=== PATIENT | male | born 1940 | race Caucasian/White ===

== ENCOUNTER 2022-01-20 04:05 | Emergency (ER) | payer OTHER, SELFPAY ==
--- NOTE | ~2022-01-20 | CT_ITS ---
EXAMINATION: CT brain wo con DATE: 01/20/2022 05:03 INDICATION: Anticoagulated patient with posterior head injury post fall TECHNIQUE: Computed tomography (CT) of the head was performed without intravenous contrast. Sagittal and coronal reconstructions were performed. The mA was adjusted according to patient size. Iterative reconstruction technique was employed. The dose-length product was 1362.00 mGy-cm. COMPARISON: None FINDINGS: Small left parietal scalp hematoma. No fracture. No acute intracranial hemorrhage, acute infarction o r abnormal extra axial fluid collection. There is moderate scattered white matter hypoattenuation con sistent with chronic small vessel ischemic disease. Symmetric prominence of the sulci and and subarac hnoid spaces overlying the convexities consistent with mild to moderate age-appropriate diffuse cereb ral volume loss. Ventricles are normal and symmetric. No mass/mass effect. There is mucus in the depe ndent left sphenoid sinus and mild mucoperiosteal thickening the bilateral ethmoid sinuses. The orbit s and mastoid air cells are normal. Intracranial calcified cerebral atherosclerosis is noted. IMPRESSION: 1. No fracture or acute intracranial process. 2. Age-related changes including mild to moderate diffuse volume loss and moderate scattered white ma tter hypoattenuation consistent with chronic small vessel ischemic disease. Reviewed, dictated and finalized at location A. ERS COMPENSATION CONSULTANT IMPRESSION: 1. No fracture or acute intracranial process. 2. Age-related changes including mild to moderate diffuse volume loss and moder ate scattered white matter hypoattenuation consistent with chronic small vessel ischemic disease.
--- NOTE | ~2022-01-20 | XR_ITS ---
EXAMINATION: XR pelvis 1-2V INDICATION: Pelvic pain after fall TECHNIQUE: AP view the pelvis is obtained COMPARISON: None available FINDINGS: Bone alignment is normal. There is no fracture. There is mild osteoarthritis of the hips. IMPRESSION: 1. No acute osseous abnormality. Reviewed, dictated and finalized at location A. NG STAPLER
--- NOTE | ~2022-01-20 | CT_ITS ---
EXAMINATION: CT cervical spine wo con DATE: 01/20/2022 05:04 INDICATION: Fall. Struck back of head. TECHNIQUE: Computed tomography (CT) of the cervical spine was performed without intravenous contrast. Automated exposure control and iterative reconstruction technique were employed. Exam dose: 570.17 mGy-cm total exam DLP. COMPARISON: None FINDINGS: Degenerative change at the atlantodental joint. C1 and C2 are normally aligned and the odon toid process is intact. Severe degenerative disc disease at C6-7. There is prominent degenerative change at the apophyseal joints throughout the cervical spine. No fracture or dislocation or locked facet or prevertebral soft tissue swelling. IMPRESSION: Cervical spondylosis; no evidence of fracture or dislocation or locked facet Reviewed, dictated and finalized at Location [facility]. Reviewed, dictated and finalized at location B. URE ANALYSIS ENGINEER IMPRESSION: Cervical spondylosis; no evidence of fracture or dislocation or lo cked facet
--- NOTE | ~2022-01-20 | XR_ITS ---
EXAMINATION: XR chest 1V portable INDICATION: Pain after fall TECHNIQUE: Portable AP chest at 0438 hours COMPARISON: None available FINDINGS: The lung volumes are low. No pleural effusion or pneumothorax. There are minimal airspace o pacities of the lung bases. The cardiomediastinal silhouette is normal. Fullness of the right hilum l ikely reflects prior vascular structures. IMPRESSION: 1. Minimal bibasilar airspace opacities, consistent with atelectasis versus pneumonia. Reviewed, dictated and finalized at location A. HOME HEALTH IMPRESSION: 1. Minimal bibasilar airspace opacities, consistent with atelectasis versus pne umonia.
[2022-01-20 04:05] VITALS: BP 135/120; PULSE 81; RESP 16; O2SAT 98
--- NOTE | 2022-01-20 04:28 | ECG_ITS ---
Measurements Intervals [place] Rate: 78 P: 45 CO: 195 QRS: 19 QRSD: 106 T: 31 QT: 390 QTc: 447 Interpretive Statements SINUS RHYTHM WITH OCCASIONAL SUPRAVENTRICULAR PREMATURE COMPLEXES NONSPECIFIC ST & T-WAVE ABNORMALITY NO PREVIOUS ECG AVAILABLE FOR COMPARISON Electronically Signed On 01-20-2022 7:47:41 TIP INSERTER by Kobi Nolasco M.D.
--- NOTE | 2022-01-20 04:29 | ED.GENADULT ---
HPI - General Adult General Chief complaint: Fall Stated complaint: FALL History of Present Illness HPI narrative: this is an 81-year-old male lives in assisted living presented to ED with a fall. Patient says that he got out of bed And tripped over his slippers. He then fell into the wall and then to the ground. He struck his head on the wall and has a small cut to the back of his scalp. He denies loss of consciousness, numbness tingling weakness to any extremity, nausea or vomiting. The patient does not know what medications he takes but believes he is on some sort of blood thinner. No list was sent from the assisted living is [facility]. Other than that the patient denies chest pain, difficulty breathing, abdominal pain, fever chills nausea vomiting or diarrhea. He says that he feels good. Related Data Allergies Allergy/AdvReac Type Severity Reaction Status Date / Time No Known Allergies Allergy Mild Verified 01/20/22 04:11 Review of Systems Review of Systems: CONSTITUTIONAL: Denies night sweats. EYES: No eye pain ENT: Denies rhinorrhea CARDIOVASCULAR: Denies palpitations RESPIRATORY: Denies hemoptysis GASTROINTESTINAL: Denies hematemesis GENITOURINARY: Denies hematuria. SKIN: Denies rash MUSCULOSKELETAL: Denies myalgia. NEUROLOGIC: Denies weakness. PSYCHIATRIC: Denies delusions [facility] Past Medical History Medical History (Updated 01/20/22 @ 05:45 by Chad Wooten MD) Hypertension Prostate cancer Social History Social History (Updated 01/20/22 @ 05:38 by Chad Wooten MD) Social History: denies use of alcohol tobacco or drugs. Exam Narrative: APPEARANCE: No apparent distress. Head: Small shallow abrasion to the back the patient's scalp that does not require suture repair. EYES: EOMI, NOSE: Atraumatic NECK: Trachea midline No midline cervical tenderness RESPIRATORY: No increased rate of breathing, clear to auscultation bilaterally, saturating 98% on room air, speaking in full sentences without difficulty CARDIOVASCULAR: RRR, no peripheral edema ABDOMINAL: Non-distended MUSCULOSKELETAl: No obvious deformities, head to toe trauma exam revealed no areas of tenderness or pain on active range of motion of any extremity. NEURO: Alert. Cranial nerves 2-12 grossly intact. Sensation light touch, motor function cerebellar function intact for 4 extremities. Gait exam was normal. SKIN:: Warm, dry. Normal color PSYCHIATRIC: Normal affect Course Vital Signs Vital signs: Vital Signs Pulse Rate 81 01/20/22 04:05 Respiratory Rate 16 01/20/22 04:05 Blood Pressure 135/120 H 01/20/22 04:05 Pulse Oximetry 98 01/20/22 04:05 Oxygen Delivery Room Air 01/20/22 04:05 Pulse Rate 81 01/20/22 04:05 Respiratory Rate 16 01/20/22 04:05 Blood Pressure 135/120 H 01/20/22 04:05 Pulse Oximetry 98 01/20/22 04:05 Oxygen Delivery Room Air 01/20/22 04:05 Medical Decision Making MDM Narrative Medical decision making narrative: This is an 81-year-old male who sustained a fall while getting out of bed. Patient struck his head and is on unknown if he takes blood thinners or not. CTs of the head and C-spine have been ordered. Chest x-ray and pelvis x-ray were obtained. CT head and C-spine were negative for acute injury. EKG interpretation: Rhythm [sinus], Rate 78 , [place] -[normal], [place] -[normal], QRS [narrow], QTC [normal], T waves -[negative for concerning inversions], ST Segments - [Negative for concerning elevations] Final interpretations: [Normal Sinus Rhythm] Pelvic x-ray did not show any acute findings. Chest x-ray showed some hazy opacities at the right perihilar region. Patient has no lung findings, no respiratory complaints, passed an ambulatory pulse ox test. no evidence of pneumonia. At this point I did offer to get lab work to evaluate for white blood cell count or any laboratory abnormalities but the patient refused. He reiterated that he feels we
[2022-01-20] MEDS: TETANUS,DIPHTHERIA,AC PERTUSSIS ADULT (0.5 ML) BOOSTRIX IM (05:15)
[2022-01-20 08:45] VITALS: BP 140/110; PULSE 80; RESP 16; O2SAT 97
== END 2022-01-20 08:50 ==
PROVIDERS: Emergency Provider Emergency Medicine; PCP Internal Medicine
DX: S00.01XA Abrasion of scalp, initial encounter (principal); Z23 Encounter for immunization; I10 Essential (primary) hypertension; Z85.46 Personal history of malignant neoplasm of prostate; I49.3 Ventricular premature depolarization; M47.812 Spondylosis without myelopathy or radiculopathy, cervical region; R91.8 Other nonspecific abnormal finding of lung field; W18.09XA Striking against other object with subsequent fall, initial encounter
CPT/HCPCS: 70450; 71045; 72125; 72170; 90471; 90715; 93005; 99284

== ENCOUNTER 2022-04-04 00:38 | Emergency (ER) | payer OTHER, SELFPAY ==
[2022-04-04] VITALS (16 sets, daily range): BP systolic 167–189; BP diastolic 105–120; PULSE 73–83; RESP 13–22; O2SAT 95–100
--- NOTE | ~2022-04-04 | CT_ITS ---
Noncontrast CT scan of the cervical spine Technique: Multiple contiguous axial [address] images of the cervical spine were obtained and rec onstructed in 2D sagittal and coronal planes on the acquisition scanner. Dose reduction technique was used on this scan by utilizing automated exposure control, adjustment of the mA and/or kV according to patient size. Clinical History: Pain COMPARISON: 01/20/2022 Findings: No fractures or dislocations. Osseous alignment is unchanged. There is moderate degenerati ve disc narrowing at C6-C7. There are mild uncovertebral degenerative changes at C3-C4 and C4-C5, kianna ecially on the right side. There are bilateral uncovertebral degenerative changes at C6-C7. There are mild facet joint degenerative changes bilaterally throughout the cervical spine. No prevertebral sof t tissue swelling. Impression: No fracture or subluxation of the cervical spine. Mild to moderate degenerative spondylitic changes, as noted above. Reviewed, dictated and finalized at [facility]. COORDINATOR Impression: No fracture or subluxation of the cervical spine. Mild to moderate degenerative spondylitic changes, as noted above.
--- NOTE | ~2022-04-04 | CT_ITS ---
CT head without contrast Indication: Head injury COMPARISON: 01/20/2022 Technique: Serial scans were obtained through the brain without the administration of contrast. Dose reduction technique was used on this scan by utilizing automated exposure control and iterative recon struction technique. The dose-length product (DLP) was 681.00 mGy-cm. Findings: There is no evidence of intracranial hemorrhage, mass lesion, or acute infarct. The ventri cles and subarachnoid spaces are dilated, consistent with mild atrophy. Low attenuation regions are seen within the periventricular white matter bilaterally, likely representing changes from chronic mi crovascular ischemic disease. There is no evidence of edema, mass effect or midline shift. The visu alized paranasal sinuses and mastoid air cells are clear. Impression: No intracranial hemorrhage, mass, or acute infarct. Atrophy and chronic white matter changes, as above. Reviewed, dictated and finalized at [facility]. ER Impression: No intracranial hemorrhage, mass, or acute infarct. Atrophy and chronic white matter changes, as above.
--- NOTE | 2022-04-04 02:28 | ED.GENADULT ---
HPI - General Adult General Chief complaint: Head Injury Stated complaint: fall, laceration Time Seen by Provider: 04/04/22 01:00 History of Present Illness HPI narrative: Patient 81-year-old gentleman who presents emerged department with chief complaint of head injury. Patient reports he had a ground-level fall and reports he had no loss of consciousness but reports that he had a laceration to the scalp. Patient reports that he is on blood thinners at home and reports that he had active significant bleeding. Upon arrival to emergency department the patient wound was dressed and there were no other signs of trauma. The patient reports he is unsure of his last tetanus shot. Related Data Allergies Allergy/AdvReac Type Severity Reaction Status Date / Time No Known Allergies Allergy Mild Verified 01/20/22 04:11 Review of Systems Review of Systems: A 10 system review of systems was completed on the patient and is negative except for what is stated in the HPI. Nursing and ancillary documentation was reviewed. PMFSH Past Medical History Medical History Hypertension Prostate cancer Social History Social History Social History: denies use of alcohol tobacco or drugs. Exam Narrative: GENERAL: Well-appearing, well-nourished, and in no acute distress. HEAD: Normocephalic, there is a 4 cm laceration to the scalp that is actively bleeding with a small pulsatile area EYES: PERRLA and EOMI. ENT: Nares clear, no rhinorrhea or epistaxis. Mucous membranes moist. NECK: Supple. CHEST: Clear to auscultation. No respiratory distress. HEART: Regular rate and rhythm. No murmur heard. Normal peripheral pulses. ABDOMEN: Soft, nontender, nondistended, normal active bowel sounds. EXTREMITIES: Normal range of motion. No edema. SKIN: Warm, dry, no rash. NEURO: No focal deficits. Alert and oriented x3. PSYCH: Normal mood and affect. Course Vital Signs Vital signs: Vital Signs Pulse Rate 73 04/04/22 00:39 Respiratory Rate 20 04/04/22 00:39 Pulse Oximetry 99 04/04/22 00:39 Oxygen Delivery Room Air 04/04/22 00:39 Pulse Rate 73 04/04/22 00:39 Respiratory Rate 20 04/04/22 00:39 Pulse Oximetry 99 04/04/22 00:39 Oxygen Delivery Room Air 04/04/22 00:39 Procedures Laceration Laceration 1: Date: 04/04/22 Time: 02:37 Site: scalp Size (cm): 4 Description: linear Depth: simple, single layer Local Anesthetic: none Pre-repair: wound explored and irrigated ====== Skin Level ====== Skin layer closed with: demetrius Number of sutures: 10 Technique: other (skin demetrius) ====== Subcutaneous Layer ====== ====== Muscle Layer ====== ====== Tendon Layer ====== Medical Decision Making MDM Narrative Medical decision making narrative: Due to the patient possibly being on blood thinners and significant laceration with a small arterial bleed helical imaging was obtained which showed no evidence of intracranial injury and no evidence of C-spine fracture. Frontal diagnosis includes subdural subarachnoid intraparenchymal hemorrhage, skull fracture, cervical spine fracture. Patient's bleeding was controlled with demetrius and direct pressure. Patient's tetanus status was updated Patient is currently alert oriented and showing no signs of neurological dysfunction with a GCS of 15. Vital Signs Vital Signs: Vital Signs Pulse Rate 73 04/04/22 00:39 Respiratory Rate 04/04/22 00:39 Pulse Oximetry 99 04/04/22 00:39 Oxygen Delivery Room Air 04/04/22 00:39 Pulse Rate 73 04/04/22 00:39 Respiratory Rate 20 04/04/22 00:39 Pulse Oximetry 99 04/04/22 00:39 Oxygen Delivery Room Air 04/04/22 00:39 Discharge Plan Discharge Clinical Impression: Ground-level fall, Head inj
--- NOTE | 2022-04-04 02:54 | PC.NURSE ---
Spoke with patient's son and he stated he would come pick patient up and transport back to [place].
[2022-04-04] MEDS: TETANUS,DIPHTHERIA,AC PERTUSSIS ADULT (0.5 ML) BOOSTRIX IM (02:59)
== END 2022-04-04 03:56 ==
PROVIDERS: Emergency Provider Emergency Medicine; PCP Internal Medicine
DX: S01.01XA Laceration without foreign body of scalp, initial encounter (principal); Z23 Encounter for immunization; I10 Essential (primary) hypertension; Z85.46 Personal history of malignant neoplasm of prostate; W18.30XA Fall on same level, unspecified, initial encounter
CPT/HCPCS: 12002; 70450; 72125; 90471; 90715; 99284